=== PATIENT | female | born 2000 | race Caucasian/White ===

== ENCOUNTER → 2021-12-01 | Outpatient (CLI) | payer BC | LOC: DIA.ED 11-26 09:04 | DX: O24.419 Gestational diabetes mellitus in pregnancy, unspecified control (principal) | CPT/HCPCS: G0108 ==

== ENCOUNTER → 2021-12-11 | Outpatient (CLI) | payer BC | LOC: DIA.ED 08:08 | DX: O24.419 Gestational diabetes mellitus in pregnancy, unspecified control (principal) | CPT/HCPCS: G0108 ==

== ENCOUNTER 2021-12-30 09:03 | Inpatient (IN) | payer BC ==
[~2021-12-30] VITALS: Ht 167.6 cm; Wt 94.5 kg
[2022-01-01] VITALS (35 sets, daily range): BP systolic 93–142; BP diastolic 53–78; PULSE 70–113; TEMP 97.5–98.2
--- NOTE | 2022-01-01 06:25 | NUR ---
0625-37.4 G1 patient ambulatory to LR 4 for scheduled induction of labor. Denies leaking of fluid or vaginal bleeding. Reports good movement. Assessment complete. Consents reviewed and signed. IV to right wrist by RENALDO Lorenz blood collected by lab. LR infusing per order, see EMAR 0730-Pitocin per orders. 0800-Dr. Treadwell to patient room. SVE 3/-1 AROM clear fluid noted.
[2022-01-01 07:29] LABS: BASO % 0.3 % (0.0-2.0); EOS % 0.4 % (0.0-4.0); GRAN # 8.5 K/mm3 (1.4-6.5); GRAN % 75.1 % (42.2-75.2); HEMOGLOBIN 11.9 g/dl (12.5-16.0); LYMPH # 1.7 K/mm3 (1.2-3.4); LYMPH % 15.2 % (20.0-51.0); MEAN CELL VOLUME 84 fl (80.0-100.0); MEAN CORPUSCULAR HEMOGLOBIN 29 pg (27-31); MEAN CORPUSCULAR HGB CONC 34 g/dl (33.0-37.0); MONO # 0.9 K/mm3 (0.1-0.6); PLATELET COUNT 244 K/mm3 (130-400); RED BLOOD COUNT 4.18 M/mm3 (4.10-5.30); REDCELL DISTRIBUTION WIDTH-CV 14.3 % (11.5-14.5)
[2022-01-01] MEDS ORDERED: PRENATAL (07:54)
[2022-01-01] MEDS ORDERED: ACTIGALL 300MG300 MG PO (07:56)
--- NOTE | 2022-01-01 08:55 | NUR ---
0855-Loritent leaning over bed for comfort. Difficulty tracing FHR RN to room to adjust EFM. Patient off EFM to bathoroom. Returns to sit on bedside. Maternal BG 74, apple juice provided.
--- NOTE | 2022-01-01 09:38 | NUR ---
0938-Cesar.[email or web address] Pereira notified patient requests epidural.
--- NOTE | 2022-01-01 10:10 | NUR ---
1010-Patient sitting up on bedside for epidural. Difficulty tracing FHR due to maternal positioning. 1016-SS administered by Klaus Pereira CRNA, VSS, tolerated procedure well. Repositioned WL.
[2022-01-01] MEDS ORDERED: MOTRIN 800800 MG/TAB PO (15:33)
--- NOTE | 2022-01-01 16:40 | NUR ---
1055-Ortiz to DD, clear yellow urine. SVE 5-6/90/-1. Repostioned WR with peanut ball. 1107-Maternal HR 82 BP 85/48 10 mg ephedrine given per protocol. 1118-Maternal HR 86 BP 96/55 10 mg ephedrine given per protocol.
--- NOTE | 2022-01-01 16:45 | NUR ---
1255-Dr. Treadwell in to see patient SVE 10/+3. Orders to start pushing. 1312-Ortiz discontinued and patient begins pushing with RN, moves vertex well. 1435-Dr. Treadwell assumes pushing with patient. Patient continues to move vertex well. 1400-Spontaneous delivery of head attended by Dr. Treadwell immediately body follows. Infant nares and mouth bulb suctioned by MD. cord clamped x 2 and cut by FOB. Viable male infant to mothers abdomen. Care assumed by RENALDO Sheikh. Apgars 8/9/9. 1403-Spontaneous delivery of intact placenta by Dr. Treadwell. Fundal massage firm. EBL 300ml. Pitocin bolus per MD order and protocol. Second degree perineal laceration and bilateral labial lacerations repaired by MD. Ivette care provided. Updated on plan of care and safety.
[2022-01-02] VITALS: BP 107/69; PULSE 81; TEMP 98
[2022-01-02 04:30] VITALS: BP 116/62; PULSE 89; TEMP 97.9
[2022-01-02 07:45] VITALS: BP 103/58; PULSE 85; TEMP 97.6
--- NOTE | 2022-01-02 09:16 | NUR ---
Initial viist attempt; Stamp Pad Finisher left card of congratulations and God's blessings along with information regarding the availability of spiritual care at [facility].
[2022-01-02 11:24] VITALS: BP 103/58; PULSE 85; TEMP 97.6
[2022-01-02 16:30] VITALS: BP 119/67; PULSE 100; TEMP 98.1
[2022-01-02 19:00] VITALS: BP 121/69; PULSE 94; TEMP 98.2
[2022-01-03 07:11] VITALS: BP 106/73; PULSE 76; TEMP 97.5
--- NOTE | 2022-01-03 11:24 | NUR ---
PT AND SPOUSE WATCHING EDUCATION VIDEOS AT THIS TIME
--- NOTE | 2022-01-03 14:40 | NUR ---
Discharge instructions for pt and baby reviewed with pt and pt's spouse, regarding follow-up appointments, activity restrictions, pain relief/medications, etc. ID bands on baby matched to mom and footprint sheet. Pt discharged home, escorted out of facility via WC accompanied by this nurse and pt's spouse. Pt carrying baby.
== END 2022-01-03 14:45 | disposition home or self-care (01) | DRG 805 ==
LOC: LDR 12-31 09:02 → OB 01-01 06:12 → LDR 01-01 07:47 → OB 01-01 17:30
PROVIDERS: ADMIT Obstetrics & Gynecology
PROC: 10E0XZZ Delivery of Products of Conception, External Approach (ICD-10-PCS; principal; 2022-01-01)
PROC: 0KQM0ZZ Repair Perineum Muscle, Open Approach (ICD-10-PCS; 2022-01-01)
PROC: 10907ZC Drainage of Amniotic Fluid, Therapeutic from Products of Conception, Via Natural or Artificial Opening (ICD-10-PCS; 2022-01-01)
PROC: 3E033VJ Introduction of Other Hormone into Peripheral Vein, Percutaneous Approach (ICD-10-PCS; 2022-01-01)
DX: O26.62 Liver and biliary tract disorders in childbirth (principal); K83.1 Obstruction of bile duct; Z37.0 Single live birth; O99.354 Diseases of the nervous system complicating childbirth; G43.909 Migraine, unspecified, not intractable, without status migrainosus; O24.420 Gestational diabetes mellitus in childbirth, diet controlled; O70.1 Second degree perineal laceration during delivery; O32.2XX0 Maternal care for transverse and oblique lie, not applicable or unspecified; O99.214 Obesity complicating childbirth; Z3A.37 37 weeks gestation of pregnancy; Z86.16 Personal history of COVID-19
CPT/HCPCS: J2590; J2795; J7120

== ENCOUNTER 2022-02-17 13:56 | Outpatient (CLI) | payer BC ==
[~2022-02-17 13:56] MED LIST: ACTIGALL 300MG300 MG PO; MOTRIN 800800 MG/TAB PO; PRENATAL
--- NOTE | 2022-02-17 14:52 | NUR ---
Maritza Twaddle in to office for consult with 6 week old "Ti." Ti was born on [birth year] with a weight of 7#10 oz (3450 grams). Maritza states Ti is being treated with Pepcid for GERD due to spitting up and low weight gain. Ti has been on Pepcid for approx 2 weeks. Maritza states he is spitting up less and appears to be gaining weight. Maritza states Ti to be nursing atleast 8 times per day for approx 15 min per breast and reports diapers to be WNL. Maritza expresses no concern with her milk supply at this time. Ti's prefeed weight noted to be 8# 14 oz (4026 grams). While in consult, Ti nursed approx 15 min from each breast. Post feed weight noted to be 9# (4082 gm) with a total gain of 56 grams. It should also be noted that Ti finished a nursing session approx 1 hour before consult. LC noted good latch and positioning during feeding. LC discussed expected weight gain of 4- 8 oz per week and that infant's daily intake should be approx 27 ml. Discussed ways to help manage spitting up such as decreasing offensive foods from her diet, keeping infant elevated after feedings, and offering small, frequent feedings. Questions encouraged and answered. Understanding verbalized. Ti to attend follow up appointment with Dr. Patino on 02/23/2022.
== END 2022-02-17 15:00 | disposition home or self-care (01) ==
LOC: LAC 13:56
DX: Z39.1 Encounter for care and examination of lactating mother (principal)

== ENCOUNTER 2023-01-08 10:58 | Day surgery (SDC) | payer SELFPAY ==
[~2023-01-08] VITALS: Ht 167.6 cm; Wt 86.2 kg
[2023-01-08 11:58] VITALS: BP 124/69; PULSE 90; TEMP 98
[2023-01-08 13:48] VITALS: BP 98/67; PULSE 84; TEMP 97.8
[2023-01-08 14:05] VITALS: BP 106/70; PULSE 78
[2023-01-08 14:20] VITALS: BP 121/70; PULSE 69
[2023-01-08 14:35] VITALS: BP 126/72; PULSE 72
--- NOTE | 2023-01-08 20:24 | NUR ---
1348 PT TO [facility] [place] [facility] 1 FROM OR S/P D&C DRSG IS PERIPAD AND MESH UNDERWARE, CDI PLACED ON MONITOR, VSS ON RA, PLACED ON 2 L NC PER ORDER RECEIVED REPORT AND ASSUMED CARE OF PT FROM ZAFAR AND NAWAF PT ORIENTED TO ROOM, CALL LIGHT IN REACH, BED LOW AND LOCKED. DISPO PLAN REVIEWED - PT AGREEABLE AT BEDSIDE. PT/FAMILY ASKING FOR REMAINS - PLAN FOR HOUSE SUP TO ASSEMBLE BEREAVEMENT PACKAGE WITH REMAINS TO BE GIVEN TO PT AT TIME OF D/C. A&O, NAD, DENIES COMPLAINT. PROVIDED APPLE JUICE PER REQUEST, DECLINING FOOD - TOLERATING WELL. 1415 DR JAMES CALLED FOR ORDER CLARIFICATION - OK TO D/C PT HOME, WITH 2 WEEK TELEVISIT F/U, APPT CONFIRMED WITH OFFICE AND PT AT TIME OF DEPARTURE. PT HAS REMAINED A&O, NAD, VSS ON RA, TOLERATING PO, IS WITHOUT SIGNIFICANT COMPLAINT, WITH STEADY GAIT THRU OUT [facility] STAY, SCANT BLEEDING TO PERIPAD. IV D/C'D. D/C INSTRUCTIONS, AND REMAINS/BEREAVEMENT PACKAGE HANDED TO PT. ALL QUESTIONS AND CONCERNS ADDRESSED TO PT SATISFACTION. 1445 TAKEN TO EXIT VIA W/C WITH ALL BELONGINGS AND PAPERWORK IN HAND, ASSISTED INTO PASSENGER SEAT OF POV. TO DRIVE HOME.
== END 2023-01-08 14:45 | disposition home or self-care (01) ==
LOC: SDCO 10:58
DX: O02.1 Missed abortion (principal)
CPT/HCPCS: J0690; J1885; J2210; J2405; J2704; J3010; J7120